=== PATIENT | male | born 1940 | race Caucasian/White ===

== ENCOUNTER 2017-02-04 16:36 | Observation (INO) | payer OTHER ==
[~2017-02-04] VITALS: Ht 165.1 cm; Wt 77.0 kg
[~2017-02-04 16:36] MED LIST: ASPI-183 PO; LEVO25TA4 PO; MEDR4PAK PO; ROSU5 PO
[2017-02-04 21:04] VITALS: BP 135/73; PULSE 72; RESP 17; TEMP 97.6; O2SAT 94
[2017-02-04 23:03] VITALS: BP 117/57; PULSE 80; RESP 17; TEMP 97.8; O2SAT 93
[2017-02-05] VITALS: PULSE 75
[2017-02-05 03:26] VITALS: BP 149/73; PULSE 76; RESP 17; TEMP 97.8; O2SAT 93
[2017-02-05 04:20] VITALS: PULSE 73
[2017-02-05] MEDS ORDERED: NITROGLYCERIN 0.4 MG SL 25 TABS/BTL SL PRN (07:45)
[2017-02-05] MEDS ORDERED: ONDANSETRON HCL 4 MG/2 ML VIAL IV PUSH PRN (07:45)
[2017-02-05] MEDS ORDERED: SODIUM CHLORIDE 0.9% FLUSH 10 ML FLUSH IV FLUSH PRN (07:45)
[2017-02-05] MEDS ORDERED: ACETAMINOPHEN 500 MG CPLT PO PRN (07:45)
[2017-02-05 08:12] VITALS: BP 154/77; RESP 20; TEMP 96.8; O2SAT 99
[2017-02-05 08:30] VITALS: O2SAT 95
[2017-02-05] MEDS ORDERED: SODIUM CHLORIDE 0.9% FLUSH 10 ML FLUSH IV FLUSH SCH (09:00)
[2017-02-05] MEDS ORDERED: ASPIRIN 325 MG TAB PO SCH (09:00)
--- NOTE | 2017-02-05 09:29 | HHI.HP ---
HPI Primary Care Physician PCP in [place], [place] Chief Complaint Chest tightness History of Present Illness 76-year-old male with known coronary artery disease including CABG 2 and aortic valve replacement 4 years ago presents to emergency room for further evaluation of chest tightness. Onset yesterday afternoon, after eating lunch. Location substernal. Characterized as tightness. No radiation of pain. No associated symptoms of nausea, vomiting, diaphoresis, or dyspnea. No known precipitating or relieving factors. Duration 45 minutes. Chest tightness resolved prior to arrival to ER. Endorses similar pain in the past prior to heart attack (apparently a NSTEMI) 4 years ago, which lead to CABG with aortic valve. Review of Systems General: No fatigue,weakness, fever, chills, recent illness, or change in appetite. Has been in his general state of health. Recently completed Medrol dose pack ordered for right hip pain. HEENT: No SHIPMAN CV: As stated above. No current CP or pressure. RESP: No SOB, cough, or sputum production. No recent respiratory illness. GI: No nausea, vomiting, or bowel changes. : No dysuria EXT: No lower leg edema, no paraesthesias MS: No discomfort, change in ROM, injury, or trauma. Difficulty with balance reportedly due to right hip pain. NEURO: No LOC, motor/sensory deficits. History of dizziness, reports PCP is following and recent MRI no acute findings, old infarct. PSYCH: No anxiety, depression, or situational stress. SKIN: No rashes, no concerning lesions Past Family Social History Allergies: Coded Allergies: No Known Allergies (Unverified , 02/04/17) Past Medical History CAD, HLD, Type II diabetes Past Surgical History CABG x2 vessels (possible 3 vessels, patient cannot remember) with aortic valve replacement (2013-Dr. Morris [facility]) Reported Medications Reported Meds & Active Scripts Active Reported Aspirin 325 Mg Tab 325 Mg PO DAILY Crestor (Rosuvastatin Calcium) 5 Mg Tab Unknown Dose PO DAILY Levothyroxine (Levothyroxine Sodium) 25 Mcg PO DAILY Glipizide 5mg TID Cinnamon 4 tablets TID MVI QD Active Ordered Medications Current Medications Medications (Trade) Dose Ordered Sig/Ron Route Start Time Stop Time Status Last Admin (NS Flush) 2 ml UNSCH PRN IV FLUSH 02/05/17 07:45 (NS Flush) 2 ml BID IV FLUSH 02/05/17 09:00 02/05/17 09:11 (Tylenol) 500 mg Q4H PRN PO 02/05/17 07:45 (Zofran Inj) 4 mg Q6H PRN IV PUSH 02/05/17 07:45 (Nitrostat Sl) 0.4 mg Q5M PRN SL 02/05/17 07:45 (Aspirin) 325 mg DAILY PO 02/05/17 09:00 02/05/17 09:11 Social History Known CAD, HLD, and DM type 2. No known HTN, denies ever being on VERONICA inhibitor. Former smoker, quit 26 year ago. Reported being a "heavy smoker." Denies any alcohol or illegal drug use. Endorses a sedentary lifestyle. Past cardiac testing No recent stress testing. Last chemical stress test approximately 2 years ago. 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 Yearly echocardiograms. Physical Exam Vital Signs Vital Signs Date Time Temp Pulse Resp B/P (MAP) Pulse Ox O2 Delivery O2 Flow Rate FiO2 02/05/17 08:30 95 21 02/05/17 08:12 96.8 20 154/77 (102) 99 02/05/17 04:20 73 02/05/17 03:26 97.8 76 17 149/73 (98) 93 02/05/17 00:00 75 02/04/17 23:03 97.8 80 17 117/57 (77) 93 02/04/17 21:04 97.6 72 17 135/73 (93) 94 Physical Exam GENERAL: Alert WN, WD, NAD, pleasant, elderly male HEAD: NC, AT NECK: Supple, no masses, trachea midline CV: RRR, 1/6 systolic murmur, no rub or gallop, no JVD, S1-S2 no S3-S4. No carotid or femoral bruits. RESP: Clear lungs throughout bilateral, no crackles, wheeze, rhonchi, symmetrical chest rise, nonlabored, able to speak in full sentences. ABD: Soft, NT, ND, no masses, positive bowel tones EXT: Pulses +24, no dependent edema MS: Normal tone 4 extremities, no obvious deformities, full range of motion NEURO: Motor strength 5/5, gait WNL PSYCH: A+O 3, pleasant affect, appropriate speech, mood, insight and judgment SKIN: Normal turgor, normal texture, no lesions, no rashes, brisk cap refill Laboratory Laboratory Test completed in [place] [facility] CBC WBC 11.4 otherwise unremarkable. CMP Creat 1.40, random glucose 309 otherwise unremarkable. Troponin x2 ([place] [facility]) less than 0.02 Laboratory Tests Test 02/04/17 21:06 Troponin I LESS THAN 0.02 Imaging Chest x-ray read by radiologist as no acute cardiopulmonary process. Course EKG Normal sinus rhythm, right bundle branch block Caprini VTE Risk Assessment Caprini VTE Risk Assessment: Mod/High Risk (score >= 2) Caprini Risk Assessment Model Point Value = 1 Point Value = 2 Point Value = 3 Point Value = 5 Age 41-60 Minor surgery BMI > 25 kg/m2 Swollen legs Varicose veins or History of unexplained or recurrent spontaneous Oral contraceptives or hormone replacement Sepsis (< 1 month) Serious lung disease, including pneumonia (< 1 month) Abnormal pulmonary function Acute myocardial infarction Congestive heart failure (< 1 month) History of inflammatory bowel disease Medical patient at bed rest Age 61-74 Arthroscopic surgery Major open surgery (> 45 min) Laparoscopic surgery (> 45 min) Malignancy Confined to bed (> 72 hours) Immobilizing plaster cast Central venous access Age >= 75 History of VTE Family history of VTE Factor V Leiden Prothrombin [id number] Lupus anticoagulant Anticardiolipin antibodies Elevated serum homocysteine Heparin-induced thrombocytopenia Other congenital or acquired thrombophilia Stroke (< 1 month) Elective arthroplasty Hip, pelvis, or leg fracture Acute spinal cord injury (< 1 month) Prophylaxis Regimen Total Risk Factor Score Risk Level Prophylaxis Regimen 0-1 Low Early ambulation 2 Moderate Order ONE of the following: *Sequential Compression Device (SCD) *Heparin 5000 units SQ BID 3-4 Higher Order ONE of the following medications: *Heparin 5000 units SQ TID *Enoxaparin/Lovenox 40 mg SQ daily (WT < 150 kg, CrCl > 30 mL/min) *Enoxaparin/Lovenox 30 mg SQ daily (WT < 150 kg, CrCl > 10-29 mL/min) *Enoxaparin/Lovenox 30 mg SQ BID (WT < 150 kg, CrCl > 30 mL/min) AND/OR *Sequential Compression Device (SCD) 5 or more Highest Order ONE of the following medications: *Heparin 5000 units SQ TID (Preferred with Epidurals) *Enoxaparin/Lovenox 40 mg SQ daily (WT < 150 kg, CrCl > 30 mL/min) *Enoxaparin/Lovenox 30 mg SQ daily (WT < 150 kg, CrCl > 10-29 mL/min) *Enoxaparin/Lovenox 30 mg SQ BID (WT < 150 kg, CrCl > 30 mL/min) AND *Sequential Compression Device (SCD) Assessment and Plan Assessment and Plan #1 Chest pain-admitted to chest pain center. Ruled out with 3 sets of EKGs and cardiac enzymes. Seen and evaluated by Dr. Kishore Fernandes. Proceed with [facility] nuclear stress testing. If unremarkable, plans to discharge home with follow up with PCP. #2 History of CAD-continue rosuvastatin #3 Type II diabetes-discussed random glucose of 309, recently completed steroid dose, SSI low dose coverage, continue glipizide upon discharge, follow up with PCP for recheck of random glucose and/or HgAIc. #4 Hypertension-start lisinopril 10 mg daily, discussed diabetic guidelines of being an VERONICA inhibitor being renal protective. Prescription will be provided at discharge, follow up with PCP. Lee Ann Zavala Feb 05, 2017 09:29
[2017-02-05] MEDS ORDERED: GLUCAGON 1 MG/ML VIAL OTHER PRN (09:30)
[2017-02-05] MEDS ORDERED: DEXTROSE 50% IN WATER 50 ML VIAL(D50) IV PUSH PRN (09:30)
[2017-02-05] MEDS ORDERED: LISINOPRIL 10 MG TAB PO ONE (10:00)
[2017-02-05 10:42] VITALS: PULSE 72
[2017-02-05] MEDS ORDERED: REGADENOSON INJ 0.4 MG/5 ML SYR ONE (11:21)
[2017-02-05] MEDS ORDERED: INSULIN ASPART SUPPLEMENTAL SCALE SQ SCH (12:00)
--- NOTE | 2017-02-05 12:38 | RADRPT ---
EXAM DATE/TIME: 02/05/2017 11:14 [place] COMPARISON: No previous studies available for comparison. INDICATIONS : Angina. DOSE: 26.0 mCi Tc99m Myoview at stress. 8.5 mCi Tc99m Myoview at rest. 0.4 mg Lexiscan STRESS SYMPTOMS: Dyspnea. EJECTION FRACTION: 70% MEDICAL HISTORY : Diabetes mellitus type 2. Myocardial infarction. SURGICAL HISTORY : CABG ENCOUNTER: Initial ACUITY: 1 day PAIN SCALE: 4/10 LOCATION: Bilateral chest TECHNIQUE: The patient underwent pharmacologic stress with infusion of prescribed dose. Continuous ECG tracing was monitored during stress. Gated SPECT imaging was performed after stress and conventional SPECT i maging was performed at rest. The examination was performed on a SPECT/CT scanner, both attenuation and non-corrected datasets were reviewed. FINDINGS: DISTRIBUTION: The maximum perfused segment at stress is in the lateral wall. PERFUSION STUDY: The pattern of perfusion at stress is within normal limits. GATED STUDY: There is intact wall motion and thickening without hypokinetic or dyskinetic segments. CONCLUSION: Unremarkable examination. RISK CATEGORY: Low Pradip Sanchez MD on February 05, 2017 at 12:35 Board Certified Radiologist. This report was verified electronically.
[2017-02-05] MEDS ORDERED: LISI10TA3 PO (13:47)
--- NOTE | 2017-02-05 13:47 | HHI.DCPOC ---
Discharge Care Plan Diagnosis: (1) Atypical chest pain (2) Hx of coronary artery disease (3) Hypertension Goals to Promote Your Health * To prevent worsening of your condition and complications * To maintain your health at the optimal level Directions to Meet Your Goals Take your medications as prescribed Follow your dietary instruction Follow activity as directed Keep your appointments as scheduled Take your immunizations and boosters as scheduled If your symptoms worsen call your PCP, if no PCP go to Urgent Care Center or Emergency Room Smoking is Dangerous to Your Health. Avoid second hand smoke Call the 24-hour hour crisis hotline for domestic abuse at Lee Ann Zavala Feb 05, 2017 13:47
--- NOTE | 2017-02-05 16:22 | EKG ---
Date Performed: 02/04/2017 Time Performed: 21:17:07 PTAGE: 76 years EKG: Sinus rhythm RIGHT BUNDLE BRANCH BLOCK LEFT POSTERIOR FASCICULAR BLOCK ABNORMAL ECG Since PREVIOUS TRACING , no significant change noted DOCTOR: Kishore Fernandes Interpretating Date/Time 02/05/2017 16:20:18
--- NOTE | 2017-02-05 16:37 | TR ---
Date Performed: 02/05/2017 Time Performed: 11:33:06 DOCTOR: Kishore Fernandes DRUG LIST: CLINICAL HISTORY: CHEST PAIN REASON FOR TEST: CHEST PAIN REASON FOR ENDING: OBSERVATION: CONCLUSION: COMMENTS:
== END 2017-02-05 14:20 | disposition home or self-care (01) ==
LOC: NEDDLT 18:25 → NEPGCP 18:35
DX: R07.89 Other chest pain (principal); I25.10 Atherosclerotic heart disease of native coronary artery without angina pectoris; I10 Essential (primary) hypertension; I45.10 Unspecified right bundle-branch block; I44.5 Left posterior fascicular block; I25.2 Old myocardial infarction; E11.69 Type 2 diabetes mellitus with other specified complication; Z95.1 Presence of aortocoronary bypass graft; Z95.2 Presence of prosthetic heart valve; Z87.891 Personal history of nicotine dependence
CPT/HCPCS: 71010; 78452; 80048; 82550; 82948; 83735; 83880; 84484; 85025; 85610; 85730; 93005; 93017; A9502; G0378; J2785

== ENCOUNTER 2017-09-30 16:25 | Observation (INO) ==
[2017-09-30] MEDS ORDERED: Acetaminophen 325 MG Tablet PO PRN (18:00)
[2017-09-30] MEDS ORDERED: Bisacodyl 10 MG Supp RECTAL PRN (18:00)
[2017-09-30] MEDS ORDERED: Temazepam 15 MG Capsule PO PRN (18:00)
[2017-09-30] MEDS ORDERED: Dextrose 50% in Water 50 ML Vial IV.PUSH PRN (22:12)
--- NOTE | 2017-09-30 23:36 | P.HPIM ---
History of Present Illness Service: [facility] Primary Care Physician: UNKNOWN Chief Complaint: Chest pain History of Present Illness: Mr. North is a 77-year-old male with a history of coronary artery disease status post CABG 2 with AVR in 2012, CVA, right bundle branch block, OK, type II diabetes mellitus, hyperlipidemia, hypertension, and goiter who presented to the emergency room and [place] on 09/30 for evaluation of severe left-sided chest pain. He also had a syncopal episode prior to experiencing CP. The patient is seen in the CDU. He says he was outside his home and sweating when he became acutely and quite severely dizzy and fell. Initially he denies loss of consciousness but upon further questioning, he did have a brief LOC and excoriated his right forearm when he fell. He denies hitting his head during the fall. He went into his home to cool down and that's when he began having severe left chest pain that did not radiate anywhere and was sharp in nature. It was accompanied by nausea without vomiting; denies SOB or palpitations. CP was relieved by NTG 0.4 mg SL x 2 doses. He reports intermittent syncope over the past couple of years. 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 Jeff in [place] - states he is due for carotid u/s and echocardiogram. He had brain imaging about one year ago that showed an old infarct. - Diagnosis (1) Chest pain (2) Syncope (3) Type 2 diabetes mellitus (4) Hypothyroidism Inpatient Certification: I certify that the inpatient services were ordered in accordance with Medicare regulations governing the order. This includes certification that hospital inpatient services are reasonable and necessary and in the case of services not specified as inpatient-only under 42 CFR 419.22(n), that they are appropriately provided as inpatient services in accordance to with the 2-midnight benchmark under 43 CFR 412.3(e) Review of Systems All other systems reviewed negative except as stated in [facility] - History History Provided By: Patient - Medical History Medical History: Medical History (Last Updated 10/01/17 @ 01:03 by RC Wu) Carotid artery disease History of right bundle branch block CVA (cerebral vascular accident) Diabetes mellitus Goiter Hypercholesterolemia Hypertension Myocardial infarction - Surgical History Surgical History: Surgical History (Last Updated 10/01/17 @ 00:27 by RC Wu) History of aortic valve replacement Onset Date: ~2012 History of coronary artery bypass graft x 2 Onset Date: ~2012 Heart valve replaced History of thyroidectomy, subtotal - Family History Family History: Family History (Last Updated 10/01/17 @ 02:03 by RC Wu) Brother CAD (coronary artery disease) Diabetes mellitus Sister Diabetes mellitus - Tobacco History Second Hand Smoke Exposure: No Tobacco Use In Past 30 Days: Yes Smoking Status: Former smoker Tobacco Type: Cigarettes Smoking End Date: 1988 - Alcohol History How Often Do You Have a Drink Containing Alcohol: Never - Substance Use History Substance History: No History of Abuse Medications and Allergies Active Medications: Active Medications Acetaminophen (Tylenol) 650 mg PO Q4H PRN PRN Reason: Temp > 100.4 Al Hydroxide/Mg Hydroxide (Milk Of Magnesia Liq) 30 ml PO Q12H PRN PRN Reason: Mild Constipation Bisacodyl (Dulcolax Supp) 10 mg RECTAL DAILY PRN PRN Reason: SEVERE CONSITIPATION Dextrose (D50w Vial) 50 ml IV.PUSH UNSCH PRN PRN Reason: PER HYPOGLYCEMIA PROTOCOL Enoxaparin Sodium (Lovenox Inj) 40 mg SQ Q24H STEVIE Glucagon (Glucagon Inj) 1 mg OTHER PRN PRN PRN Reason: for Hypoglycemia Protocol Insulin Aspart (Novolog Insulin Suppl Scale Inj) 0 unit SQ ACHS STEVIE; Protocol Lactulose (Lactulose Liq) 30 ml PO DAILY PRN PRN Reason: SEVERE CONSITIPATION Sennosides (Senokot) 17.2 mg PO Q12H PRN PRN Reason: Moderate Constipation Temazepam (Restoril) 15 mg PO HS PRN PRN Reason: INSOMNIA Allergies Allergy/AdvReac Type Severity Reaction Status Date / Time No Known Allergies Allergy Unverified 09/30/17 16:42 Home Medications Medication Instructions Recorded Confirmed Type aspirin [Aspirin Low Dose] 81 mg PO DAILY 09/30/17 09/30/17 History clobetasol 1 applic TOPICAL BID PRN 09/30/17 09/30/17 History escitalopram oxalate 10 mg PO DAILY 09/30/17 09/30/17 History gabapentin 300 mg PO HS 09/30/17 09/30/17 History levothyroxine 50 mcg PO DAILY 09/30/17 09/30/17 History lisinopril 5 mg PO DAILY 09/30/17 09/30/17 History metformin 1,000 mg PO BID 09/30/17 09/30/17 History nitroglycerin 0.4 mg SUBLINGUAL Q2-5M PRN 09/30/17 09/30/17 History rosuvastatin 20 mg PO DAILY 09/30/17 09/30/17 History Exam Vital signs: Vital Signs 09/30/17 20:00 Temperature 98.7 F Pulse Rate 64 Respiratory Rate 16 Blood Pressure 151/68 H Pulse Oximetry 96 Intake & Output 09/30/17 09/30/17 10/01/17 06:59 18:59 06:59 Weight 73 kg Other: Weight On Admission 73 kg - Constitutional no acute distress, average body habitus - Routine HEENT Exam Head: Present: normocephalic, atraumatic - Routine Neck Exam Present: supple. Absent: JVD - Routine Respiratory Exam Present: decreased breath sounds. Absent: respiratory distress, wheezes, crackles - Routine Cardiovascular Exam Present: RRR, S1, S2. Absent: murmur, gallop, rubs - Routine Abdominal Exam Present: soft, normoactive bowel sounds. Absent: tenderness, distended - Routine Extremities Exam Present: pulses intact. Absent: edema, calf tenderness - Routine Skin Exam Present: dry, warm, wounds (right forearm) - Routine Neurological Exam Present: alert, oriented X3, normal speech. Absent: pronator drift, facial asymmetry Results - Labs Labs: Cardiac Enzymes 09/30/17 Range/Units 22:13 Troponin I Less than 0.02 L (0.02-0.05) ng/mL Labs personally reviewed by me from the [place] emergency department are summarized as -WBC 8.0, hemoglobin 14.6, hematocrit 43.2, platelets 135, sodium 143, potassium 4.7, BUN 17, creatinine 1.20, EGFR 59, glucose 118, BNP 114, first ( two - second here on admission) troponin measurement(s) are negative -PT 10.4, INR 1.0, APTT 25.3 . - Imaging Chest x-ray with no acute cardiopulmonary process identified-personally reviewed by me Caprini VTE Risk Assessment Caprini VTE Risk Assessment: Moderate/High Risk (score >= 2) Caprini Risk Assessment Model: Point Value = 1 Point Value = 2 Point Value = 3 Point Value = 5 Age 41-60 Minor surgery BMI > 25 kg/m2 Swollen legs Varicose veins or History of unexplained or recurrent spontaneous Oral contraceptives or hormone replacement Sepsis (< 1 month) Serious lung disease, including pneumonia (< 1 month) Abnormal pulmonary function Acute myocardial infarction Congestive heart failure (< 1 month) History of inflammatory bowel disease Medical patient at bed rest Age 61-74 Arthroscopic surgery Major open surgery (> 45 min) Laparoscopic surgery (> 45 min) Malignancy Confined to bed (> 72 hours) Immobilizing plaster cast Central venous access Age >= 75 History of VTE Family history of VTE Factor V Leiden Prothrombin [id number] Lupus anticoagulant Anticardiolipin antibodies Elevated serum homocysteine Heparin-induced thrombocytopenia Other congenital or acquired thrombophilia Stroke (< 1 month) Elective arthroplasty Hip, pelvis, or leg fracture Acute spinal cord injury (< 1 month) Prophylaxis Regimen: Total Risk Factor Score Risk Level Prophylaxis Regimen 0-1 Low Early ambulation 2 Moderate Order ONE of the following: *Sequential Compression Device (SCD) *Heparin 5000 units SQ BID 3-4 Higher Order ONE of the following medications: *Heparin 5000 units SQ TID *Enoxaparin/Lovenox 40 mg SQ daily (WT < 150 kg, CrCl > 30 mL/min) *Enoxaparin/Lovenox 30 mg SQ daily (WT < 150 kg, CrCl > 10-29 mL/min) *Enoxaparin/Lovenox 30 mg SQ BID (WT < 150 kg, CrCl > 30 mL/min) AND/OR *Sequential Compression Device (SCD) 5 or more Highest Order ONE of the following medications: *Heparin 5000 units SQ TID (Preferred with Epidurals) *Enoxaparin/Lovenox 40 mg SQ daily (WT < 150 kg, CrCl > 30 mL/min) *Enoxaparin/Lovenox 30 mg SQ daily (WT < 150 kg, CrCl > 10-29 mL/min) *Enoxaparin/Lovenox 30 mg SQ BID (WT < 150 kg, CrCl > 30 mL/min) AND *Sequential Compression Device (SCD) Assessment and Plan - Assessment (1) Chest pain Code(s): R07.9 - Chest pain, unspecified Status: Acute (2) Syncope Code(s): R55 - Syncope and collapse Status: Acute (3) Type 2 diabetes mellitus Code(s): E11.9 - Type 2 diabetes mellitus without complications Status: Chronic (4) Hypothyroidism Code(s): E03.9 - Hypothyroidism, unspecified Status: Chronic - Plan Mr. North is a 77-year-old male with a history of coronary artery disease status post CABG 2 with AVR in 2012, CVA, right bundle branch block, OK, type II diabetes mellitus, hyperlipidemia, hypertension, and goiter who presented to the emergency room and [place] on 09/30 for evaluation of severe left-sided chest pain. He also had a syncopal episode prior to experiencing CP. Coronary artery disease status post CABG and AVR Chest pain -Unremarkable Lexiscan myocardial perfusion study here 02/05/2017 -Check serial EKGs and cardiac enzymes to rule out ACS -As needed nitroglycerin as needed for chest pain -Continuous cardiac telemetry to monitor for arrhythmias Syncope - check Carotid US to evaluate progression of carotid artery disease, Echocardiogram to evaluate cardiac valves, structures and function - check orthostatic vitals - check head CT and consider neurology evaluation - patient would likely benefit from a holter monitor to evaluate for arrhythmia Type 2 Diabetes Mellitus - Hold metformin in case of contrast imaging/procedures - Accu-Cheks before meals and at bedtime with low-dose NovoLog sliding scale coverage - Hypoglycemia protocol - Monitor trends and blood glucose readings and adjust treatments as indicated - Continue home gabapentin for diabetic peripheral neuropathy Hypothyroidism status post subtotal thyroidectomy -Resume home Synthroid DVT prophylaxis -Lovenox 40 mg subcu every 24 hours Discussed Condition With: Dr. Garcia and Patient H&P: Quality - VTE Deep Vein Thrombosis/Pulmonary Embolism Present on Admission: No (3) Type 2 diabetes mellitus Qualifiers: Diabetes mellitus complication status: with neurologic complications Diabetes mellitus complication detail: with unspecified neuropathy
[2017-10-01] MEDS: Enoxaparin Inj 40 MG/0.4 ML Syringe SQ SCH ×2 (01:48→20:39)
[2017-10-01] MEDS: Levothyroxine 50 MCG Tablet PO SCH (06:17)
[2017-10-01 08:06] LABS: Creatine Kinase 40 U/L (39-308)
--- NOTE | 2017-10-01 09:18 | US ---
EXAM DATE: 10/01/2017 9:04 AM EDT AGE/SEX: 77 years / Male INDICATIONS: Syncope. CLINICAL DATA: This is the patient's initial encounter. Patient reports that signs and symptoms have been present for 2 days and indicates a pain score of 0/10. MEDICAL/SURGICAL HISTORY: Hypercholesterolemia. Carotid artery disease. CVA. Diabetes. Goiter. History of right bundle branch block. HTN. RI. Thyroidectomy. Aortic valve replacement. CABG x2. COMPARISON: No prior exams available for comparison. VELOCITY PARAMETERS: ICA/CCA Ratio: Right 0.8 , Left 0.0 ICA: Right 83 cm/sec, Left 87 cm/sec CCA: Right 103 cm/sec, Left 0.0 cm/sec ECA: Right 203 cm/sec, Left 118 cm/sec Vertebral: Right 41 cm/sec antegrade, Left 54 cm/sec antegrade FINDINGS: Right Carotid: Moderate arteriosclerotic plaque is visualized.The waveforms are within normal limits . Left Carotid: The left common carotid in the mid to low neck is poorly visualized and difficult to ev aluate.. The proximal common carotid is probably occluded.. There is flow in the internal carotid pro bably collateralized. limits. Other: Antegrade in both vertebral arteries. CONCLUSION: 1. Right internal carotid shows only moderate plaque. 2. Abnormal left common carotid. 3. CT angiography is suggested. Electronically signed by: Lorenzo Ma MD 10/01/2017 9:17 AM EDT
[2017-10-01] MEDS: Insulin NovoLOG Aspart Correctional Sugar Inj SQ SCH ×4 (09:42→20:54)
[2017-10-01] MEDS: Escitalopram 10 MG Tablet PO SCH (09:43)
[2017-10-01] MEDS: Lisinopril 10 MG Tablet PO SCH (09:43)
--- NOTE | 2017-10-01 09:53 | P.PN ---
Subjective Interval history: Follow-up for chest pain, syncope. The patient reports feeling better today. He denies any further episodes of chest pain since yesterday, relieved by nitroglycerin. He denies any lightheadedness or dizziness. Denies any other medical complaints including no palpitations, shortness of breath, or abdominal complaints. He is a poor historian and does not know when his last stress test or echocardiogram was done, therefore history supplemented by EMR. He follows with [employer] watch [employer] Dr. Jeff. Physical Exam Vital signs: Vital Signs 09/30/17 20:00 10/01/17 04:00 10/01/17 08:00 Temperature 98.7 F 97.8 F 97.8 F Pulse Rate 64 69 68 Respiratory Rate 16 16 20 Blood Pressure 151/68 H 146/71 H 148/72 H Pulse Oximetry 96 98 Intake & Output 09/30/17 10/01/17 10/01/17 18:59 06:59 18:59 Weight 73 kg Other: Weight On Admission 73 kg Narrative: GENERAL: Well-nourished, well-developed pleasant elderly male patient in [facility]. SKIN: Warm and dry. No rash. HEENT: Normocephalic. Atraumatic. Pupils equal and round. Mucous membranes pink and moist. NECK: Supple. Trachea midline. CARDIOVASCULAR: Regular rate and rhythm. 2/6 systolic ejection murmur. RESPIRATORY: No accessory muscle use. Clear to auscultation. Breath sounds equal bilaterally. GASTROINTESTINAL: Abdomen soft, non-tender, nondistended. Normoactive bowel sounds x4. MUSCULOSKELETAL: No obvious deformities. Extremities without clubbing, cyanosis , or edema. NEUROLOGICAL: Awake and alert. No obvious cranial nerve deficits. Motor grossly within normal limits. Moving all extremities spontaneously. Normal speech. PSYCHIATRIC: Appropriate mood and affect; insight and judgment normal. Results - Labs Laboratory Results - last 24 hr 09/30/17 09/30/17 10/01/17 22:13 22:13 06:50 Total Creatine Kinase 53 40 Troponin I Less than 0.02 L Less than 0.02 L - Imaging Impressions Carotid Doppler Study 10/01/17 00:00 CONCLUSION: 1. Right internal carotid shows only moderate plaque. 2. Abnormal left common carotid. 3. CT angiography is suggested. Assessment and Plan - Plan 77-year-old male with a history of coronary artery disease status post CABG 2 with AVR in 2012, CVA, right bundle branch block, [place], type II diabetes mellitus , hyperlipidemia, hypertension, and goiter who presented to the emergency room and [place] on 09/30 for evaluation of severe left-sided chest pain. He also had a syncopal episode prior to experiencing CP. Chest Pain: with hx of CAD s/p CABG and AVR. Chest pain currently resolved after Nitro. -EMR reviewed, Unremarkable Lexiscan myocardial perfusion study here 02/05/2017 -ACS ruled out with negative serial cardiac enzymes x3 and EKG without acute ischemic changes -Continue nitroglycerin prn chest pain -Continuous cardiac telemetry to monitor for arrhythmias -Consult cardiology, patient known to Dr. Jeff with [facility], seen by Dr. Taveras -Nuclear stress test ordered Near Syncope -Head CT reviewed and unremarkable -Carotid US showed right internal carotid aretery with moderate plaque however abnormal left common carotid; CTA carotids recommended -Check echocardiogram to evaluate cardiac valves, structures and function -check orthostatic vitals -cardiology consulted as above, can do holter vs event monitor as outpatient if recommended by cardiology Type 2 Diabetes Mellitus with neuropathy -Hold metformin while in hospital -Monitor Accu-Cheks and cover with low-dose NovoLog sliding scale coverage -Hypoglycemia protocol -Monitor trends and blood glucose readings and adjust treatments as indicated -Continue home gabapentin for diabetic peripheral neuropathy Hypothyroidism status post subtotal thyroidectomy -Resume home Synthroid DVT prophylaxis -Lovenox 40 mg subcu every 24 hours
--- NOTE | 2017-10-01 10:41 | MB ---
cc: Al Taveras MD DATE: 10/01/2017 CHIEF COMPLAINT: Presyncope and chest pain. HISTORY OF PRESENT ILLNESS: Kishore North is a 77-year-old man who is a patient of my colleague, Dr. Paredes. The patient has history of aortic stenosis and coronary artery disease. In 06/2012, he had vein grafts to the obtuse marginal branch and right coronary artery, along with a bioprosthetic valve. The patient states that he was working in his yard. He had finished mowing. He was now clipping some shoe rubs and he was very sweaty and hot. He started to feel very dizzy and he fell backward to the ground. He does not think he actually passed out. He went inside to cool down. Once he went inside, he had severe left-sided chest pain, for which he took 2 nitroglycerin and had relief after about 10 minutes. His cardiac enzymes have since then been normal. He has not had any further angina. He has had some intermittent chest pain in the past, the last episode was about 6 months ago. PAST MEDICAL HISTORY: Includes mildly diminished pedal pulses. He has cardiac disease as described above, carotid disease, COPD, type 2 diabetes with numbness in his toes, hyperlipidemia, hypothyroidism, previous [place] in 12/2011. PAST SURGICAL HISTORY: Includes his heart procedures and an appendectomy. MEDICATIONS: Charted. He is currently on aspirin, atorvastatin 40 mg, lisinopril 5 mg, gabapentin. ALLERGIES: NONE KNOWN. FAMILY HISTORY: Positive for CHF and type 2 diabetes. SOCIAL HISTORY: Drinks about 2 beers a day. He quit smoking 30 years ago. PHYSICAL EXAMINATION: GENERAL: Reveals a well-developed, well-nourished man in no acute distress. VITAL SIGNS: Charted. HEENT: Unremarkable. NECK: Negative for JVD or bruits. CHEST: Shows diminished breath sounds, but clear. CARDIAC: Shows normal first and second heart sounds, regular rate and rhythm. Grade II/ early peaking systolic ejection murmur along the left sternal border. ABDOMEN: Soft, nontender. EXTREMITIES: Reveal mildly diminished pedal pulses. DIAGNOSTIC STUDIES: Troponins are negative. EKG shows sinus rhythm with a right bundle branch block. Carotid Doppler study is abnormal and a CTA was recommended. Chest x-ray from 09/30/2017 showed no acute abnormality. IMPRESSION: Episode of dizziness, presyncope, followed by chest pain after strenuous exertion outside in the heat. No evidence for a myocardial infarction. Symptoms have resolved. PLAN: I am going to check a Lexiscan nuclear stress test to evaluate his ischemic burden. If there is no significant ischemia, I do not recommend a catheterization. In the meantime, I spoke to his primary about checking a carotid CTA as recommended by radiology. Further therapy to be determined. MD CASEY Diaz/MICHAEL , 10:17 AM , 10:39 AM
--- NOTE | 2017-10-01 10:49 | CT ---
EXAM DATE: 10/01/2017 10:39 AM EDT AGE/SEX: 77 years / Male INDICATIONS: Syncope episode. CLINICAL DATA: This is the patient's initial encounter. Patient reports that signs and symptoms have been present for 1 day and indicates a pain score of 0/10. MEDICAL/SURGICAL HISTORY: Cardiovascular disease. Cerebrovascular disease. Diabetes. HTN None. RADIATION DOSE: 34.24 CTDI (mGy) COMPARISON: No prior exams available for comparison. TECHNIQUE: CT of the head without contrast. Using automated exposure control and adjustment of the mA and/or kV according to patient size, radiation dose was kept as low as reasonably achievable to ob tain optimal diagnostic quality images. DICOM format image data is available electronically for revi ew and comparison. FINDINGS: Cerebrum: The ventricles are normal for age. No evidence of midline shift, mass lesion, hemorrhage or acute infarction. No extraaxial fluid collections are seen. Posterior Fossa: The cerebellum and brainstem are intact. The 4th ventricle is midline. The cerebe llopontine angle is unremarkable. Extracranial: The visualized portion of the orbits is intact. Skull: The calvaria is intact. No evidence of skull fracture. CONCLUSION: 1. Negative for acute process. Electronically signed by: Lorenzo Ma MD 10/01/2017 10:47 AM EDT
--- NOTE | 2017-10-01 19:32 | CT ---
EXAM DATE: 10/01/2017 7:12 PM EDT AGE/SEX: 77 years / Male INDICATIONS: Abnormal carotid ultrasound. CLINICAL DATA: This is the patient's initial encounter. Patient reports that signs and symptoms have been present for 1 day and indicates a pain score of 0/10. MEDICAL/SURGICAL HISTORY: Diabetes. Cardiovascular disease. Hypertension. CABG. RADIATION DOSE: 10.53 CTDI (mGy) [place] [facility] [place] CAR[place]/01/2017. . TECHNIQUE: Volumetric scanning was performed using a multirow detector CT scanner during bolus infus ion of 74 ml Omnipaque 350 (iohexol) nonionic water-soluble contrast as a single exam dose. The da ta was postprocessed with a variety of visualization algorithms including full-volume maximum intensi ty projection, multiplanar sliding thin-slab reformation, curved-planar reformation, and surface-rend ering techniques. Using automated exposure control and adjustment of the mA and/or kV according to p atient size, radiation dose was kept as low as reasonably achievable to obtain optimal diagnostic huber lity images. DICOM format image data is available electronically for review and comparison. FINDINGS: Aortic Arch: There is extensive calcification of the aortic arch and the origin of the great vessels . Right Carotid: There is atherosclerotic calcified plaque seen throughout the right carotid system in cluding the right common carotid artery and the right internal carotid artery. Calcifications are see n at the carotid bulb region. An area of narrowing of the lumen by more than 50% is not seen. Left Carotid: There is atherosclerotic calcified plaque seen throughout the left carotid system incl uding the left common carotid artery and the left internal carotid artery. There is some soft plaque seen in the proximal left common carotid artery narrowing the lumen by approximately 33%. There is de nse calcified plaque at the carotid bulb region. An area of luminal narrowing by more than 50% is not seen. Vertebrals: The vertebral arteries have a symmetric diameter. No stenotic lesions are seen. Elevated flow velocities and ICA/CCA ratios have been found to correlate with increased degrees of ve ssel stenosis, calculated as percentage of diameter relative to a normal segment of distal ICA/CCA. CONCLUSION: Extensive atherosclerotic calcification without a definite area of significant stenosis. Electronically signed by: Jarvis Valdez MD 10/01/2017 7:31 PM EDT
[2017-10-01] MEDS ORDERED: Gabapentin 300 MG Capsule PO SCH (21:00)
[2017-10-02] MEDS: Levothyroxine 50 MCG Tablet PO SCH (05:30)
[2017-10-02 07:37] LABS: Calcium 8.5 mg/dL (8.5-10.1); Carbon Dioxide 22.8 meq/L (21.0-32.0)
[2017-10-02] MEDS: Insulin NovoLOG Aspart Correctional Sugar Inj SQ SCH ×3 (08:00→17:46)
--- NOTE | 2017-10-02 08:40 | ECG ---
Date Performed: 10/01/2017 Time Performed: 07:44:51 PTAGE: 77 years EKG: Sinus rhythm RIGHT BUNDLE BRANCH BLOCK LEFT POSTERIOR FASCICULAR BLOCK ABNORMAL ECG PREVIOUS TRACING : 02/04/2017 21.17 DOCTOR: Wen Shoemaker Interpretating Date/Time 10/02/2017 08:38:30
[2017-10-02] MEDS ORDERED: Regadenoson Inj 0.4 MG/5 ML Syringe IV.PUSH ONE (09:20)
--- NOTE | 2017-10-02 10:48 | NM ---
EXAM DATE: 10/02/2017 10:23 AM EDT AGE/SEX: 77 years / Male INDICATIONS:Coronary artery disease. Myocardial infarction Right bundle branch block. Left sided ches t pain. CLINICAL DATA: This is the patient's initial encounter. Patient reports that signs and symptoms have been present for 1 day and indicates a pain score of 8/10. MEDICAL/SURGICAL HISTORY: Diabetes mellitus type II. Hypertension. Stroke. CABG. Thyroidecto my. Appendectomy. Aortic valve replacement. COMPARISON: [facility] [place], MYOCARDIAL PERF PHARM SPECT, 02/05/2017. . DOSE: 30 mCi Tc 99m Myoview at rest 30.2 mCi [id number] at stress 0.4 mg Lexiscan STRESS SYMPTOMS: None. EJECTION FRACTION: >70 % TECHNIQUE: The patient underwent pharmacologic stress with infusion of prescribed dose. Continuous ECG tracing was monitored during stress. Gated SPECT imaging was performed after stress and conventi onal SPECT imaging was performed at rest. The examination was performed on a SPECT/CT scanner, both attenuation and non-corrected datasets were reviewed. FINDINGS: Distribution: The maximum perfused segment at stress is in the anterior wall. Perfusion Study: The pattern of perfusion at stress is within normal limits. Gated Study: There are intact wall motion and wall thickening without hypokinetic or dyskinetic segm ents. The ejection fraction is calculated at >70%. RISK CATEGORY: Low (<1% Annual Motality Rate) CONCLUSION: 1. No evidence of fixed or reversible ischemia. Normal ejection fraction and wall motion. Electronically signed by: Kayy Hudson MD 10/02/2017 10:47 AM EDT
[2017-10-02] MEDS: Escitalopram 10 MG Tablet PO SCH (11:27)
[2017-10-02] MEDS: Lisinopril 10 MG Tablet PO SCH (11:27)
--- NOTE | 2017-10-02 17:27 | ECHRPT ---
Indication: Chest Pain, Syncope CONCLUSIONS The left ventricular systolic function is normal with an estimated ejection fraction in the range of 55-60%. Mild concentric left ventricular hypertrophy. Normal left ventricular size. Mitral annular calcification is present. Mild mitral valve stenosis. Mitral valve mean gradient is 3 mmHg. The mitral valve area by Pressure Halftime Method is 1.51 cm. Trace mitral valve regurgitation. Mild Aortic stenosis with moderate to severe aortic valve calcification. Aortic valve mean gradient is 12 mmHg. The pulmonary valve is not well visualized. BP: / HR: Rhythm: Sinus MEASUREMENTS (Male / Female) Normal Values Technical Quality:Technically difficult study 2D ECHO LV Diastolic Diameter PLAX 3.0 cm 4.2 - 5.9 / 3.9 - 5.3 cm LV Systolic Diameter PLAX 2.1 cm IVS Diastolic Thickness 1.2 cm 0.6 - 1.0 / 0.6 - 0.9 cm LVPW Diastolic Thickness 1.2 cm 0.6 - 1.0 / 0.6 - 0.9 cm LV Relative Wall Thickness 0.8 RV Internal Dim ED PLAX 2.4 cm LVOT Diameter 1.9 cm LA Systolic Diameter LX 3.1 cm 3.0 - 4.0 / 2.7 - 3.8 cm M-MODE Aortic Root Diameter MM 2.4 cm LA Systolic Diameter MM 3.8 cm LA Ao Ratio MM 1.6 AV Cusp Separation MM 1.2 cm DOPPLER AV Peak Velocity 258.0 cm/s AV Peak Gradient 26.6 mmHg AV Mean Gradient 12.0 mmHg AV Velocity Time Integral 44.5 cm LVOT Peak Velocity 90.2 cm/s LVOT Peak Gradient 3.3 mmHg LVOT Velocity Time Integral 14.6 cm AV Area Cont Eq vti 0.9 cm AV Area Cont Eq pk 1.0 cm MV Peak Velocity 148.0 cm/s MV Peak Gradient 8.8 mmHg MV Mean Velocity 81.1 cm/s MV Mean Gradient 3.0 mmHg MV Area PHT 1.5 cm Mitral E Point Velocity 106.0 cm/s Mitral A Point Velocity 148.0 cm/s Mitral E to A Ratio 0.7 LV E' Lateral Velocity 6.6 cm/s Mitral E to LV E' Lateral Ratio 16.0 LV E' Septal Velocity 4.3 cm/s Mitral E to LV E' Septal Ratio 24.7 FINDINGS LEFT VENTRICLE The left ventricular systolic function is normal with an estimated ejection fraction in the range of 55-60%. Mild concentric left ventricular hypertrophy. Normal left ventricular size. RIGHT VENTRICLE Normal right ventricular size and systolic function. LEFT ATRIUM The left atrial size is normal. RIGHT ATRIUM The right atrial size is normal. ATRIAL SEPTUM Normal atrial septal thickness without atrial level shunting by limited color doppler interrogation. AORTA The aortic root and proximal ascending aorta are normal in size on limited imaging. MITRAL VALVE Mitral annular calcification is present. Mild mitral valve stenosis. Mitral valve mean gradient is 3 mmHg. The mitral valve area by Pressure Halftime Method is 1.51 cm. Trace mitral valve regurgitation. AORTIC VALVE Moderate to severe calcification Aortic valve mean gradient is 12 mmHg. TRICUSPID VALVE Structurally normal tricuspid valve. No tricuspid valve stenosis or regurgitation. PULMONARY VALVE The pulmonary valve is not well visualized. VESSELS The inferior vena cava is normal in size. PERICARDIUM No pericardial effusion. Wen Shoemaker MD (Electronically Signed) Final Date:02 October 2017 17:25
--- NOTE | 2017-10-02 18:02 | P.PN ---
Subjective Interval history: Follow up for chest pain, near syncope. The patient reports no further episodes of chest pain. Denies any lightheadedness, dizziness, or near syncope. Denies any shortness of breath or palpitations. He has been ambulating to the restroom down the hallway without difficulty. He wants to go home. Physical Exam Vital signs: Vital Signs 10/01/17 19:50 10/01/17 22:51 10/02/17 00:00 Temperature 97.7 F 97.8 F Pulse Rate 80 68 64 Respiratory Rate 18 16 Blood Pressure 136/65 130/68 Pulse Oximetry 95 93 L 10/02/17 02:57 10/02/17 03:28 10/02/17 04:05 Temperature 97.8 F Pulse Rate 72 62 68 Respiratory Rate 16 Blood Pressure 114/57 L Pulse Oximetry 94 L 10/02/17 08:49 10/02/17 13:04 10/02/17 17:03 Temperature 98.2 F 97.9 F 98.4 F Pulse Rate 78 70 62 Respiratory Rate 20 20 20 Blood Pressure 148/60 H 180/60 H 148/60 H Pulse Oximetry 98 Intake & Output 10/01/17 10/02/17 10/02/17 18:59 06:59 18:59 Other: Date of Last Bowel Movement 09/29/17 Narrative: GENERAL: Well-nourished, well-developed pleasant elderly male patient in [facility]. SKIN: Warm and dry. No rash. HEENT: Normocephalic. Atraumatic. Pupils equal and round. Mucous membranes pink and moist. CARDIOVASCULAR: Regular rate and rhythm. 2/6 systolic ejection murmur. RESPIRATORY: No accessory muscle use. Clear to auscultation. Breath sounds equal bilaterally. GASTROINTESTINAL: Abdomen soft, non-tender, nondistended. Normoactive bowel sounds x4. MUSCULOSKELETAL: No obvious deformities. Extremities without clubbing, cyanosis , or edema. NEUROLOGICAL: Awake and alert. No obvious cranial nerve deficits. Motor grossly within normal limits. Moving all extremities spontaneously. Normal speech. PSYCHIATRIC: Appropriate mood and affect; insight and judgment normal. Results - Labs CBC & Chem 7: 10/02/17 05:31 Laboratory Results - last 24 hr 10/01/17 10/01/17 10/02/17 17:45 20:51 05:31 Sodium 141 Potassium 4.0 Chloride 107 Carbon Dioxide 22.8 Anion Gap 11 BUN 17 Creatinine 0.92 Estimated GFR 80 L POC Glucose 115 H 181 H Random Glucose 89 Calcium 8.5 10/02/17 10/02/17 08:12 11:39 Sodium Potassium Chloride Carbon Dioxide Anion Gap BUN Creatinine Estimated GFR POC Glucose 111 H 165 H Random Glucose Calcium - Imaging Impressions Myocardial Perfusion Scan Nuc Med 10/01/17 00:00 CONCLUSION: 1. No evidence of fixed or reversible ischemia. Normal ejection fraction and wall motion. Neck CTA 10/01/17 00:00 CONCLUSION: Extensive atherosclerotic calcification without a definite area of significant stenosis. Assessment and Plan - Plan 77-year-old male with a history of coronary artery disease status post CABG 2 with AVR in 2012, CVA, right bundle branch block, [place], type II diabetes mellitus , hyperlipidemia, hypertension, and goiter who presented to the emergency room and [place] on 09/30 for evaluation of severe left-sided chest pain. He also had a syncopal episode prior to experiencing CP. Chest Pain: with hx of CAD s/p CABG and AVR. Chest pain currently resolved after Nitro. -EMR reviewed, Unremarkable Lexiscan myocardial perfusion study here 02/05/2017 -ACS ruled out with negative serial cardiac enzymes x3 and EKG without acute ischemic changes -Continue nitroglycerin prn chest pain -Continuous cardiac telemetry to monitor for arrhythmias -Consult cardiology, patient known to Dr. Jeff with [facility], seen by Dr. Taveras -Nuclear stress test unremarkable for any ischemia, low risk -Discussed with Dr. Shoemaker, who discussed with Dr. Taveras, cleared the patient for discharge today Near Syncope -Head CT reviewed and unremarkable -Carotid US showed right internal carotid aretery with moderate plaque however abnormal left common carotid; CTA carotids recommended -CTA carotids showed Extensive atherosclerotic calcification without a definite area of significant stenosis. -Echocardiogram with EF 55-60%, mild MS, mild , trace MR -orthostatic vitals negative -cardiology consulted as above, cleared for discharge by Dr. Taveras/Dr. Shoemaker Type 2 Diabetes Mellitus with neuropathy -Hold metformin while in hospital -Monitor Accu-Cheks and cover with low-dose NovoLog sliding scale coverage -Hypoglycemia protocol -Monitor trends and blood glucose readings and adjust treatments as indicated -Continue home gabapentin for diabetic peripheral neuropathy Hypothyroidism status post subtotal thyroidectomy -Resume home Synthroid DVT prophylaxis -Lovenox 40 mg subcu every 24 hours Discharge Planning: Discharge patient to home Condition on discharge: Stable Heart Healthy/Diabetic diet as tolerated Ad [place] activity Rx written: no new meds Follow-up with primary care physician, and cardiology Dr. Paredes
== END 2017-10-02 16:00 | disposition home or self-care (01) ==
LOC: NEPGCP 21:15 → NEDDLT 21:15
PROVIDERS: ADMIT Internal Medicine; ATTEND Internal Medicine